=== PATIENT | male | born 1985 | race Caucasian/White ===

== ENCOUNTER 2020-02-27 15:28 | Outpatient (CLI) | payer OTHER ==
--- NOTE | 2020-02-27 23:02 | Ultrasound Report ---
Reason: UMBILICAL HERNIA Procedure Date: 02/27/2020 Accession Number: [id number] / [id number] Procedure: US - Abdomen Limited CPT Code: Final Report FULL RESULT: EXAM: ABDOMEN ULTRASOUND LIMITED EXAM DATE: 02/27/2020 04:33 PM. CLINICAL HISTORY: UMBILICAL HERNIA. COMPARISON: None. TECHNIQUE: The midline anterior abdominal wall is evaluated using the 5 MHz curvilinear and 10 MHz linear array transducers. FINDINGS: Superior to the umbilicus is a midline abdominal wall epigastric hernia partially reducible containing properitoneal fat. Hernia neck 9 mm. Largest hernia sac 4.4 x 2.7 cm. IMPRESSION: Superior to the umbilicus is a partially reducible midline epigastric hernia containing properitoneal fat with 9 mm hernia neck. RADIA
== END 2020-02-27 15:29 | disposition home or self-care (01) ==
LOC: DI 15:28
PROVIDERS: ATTEND Nurse Practitioner Family
DX: K43.9 Ventral hernia without obstruction or gangrene (principal)
CPT/HCPCS: 76705

== ENCOUNTER 2020-03-14 17:25 | Emergency (ER) | payer OTHER ==
[2020-03-14] MEDS ORDERED: ceFAZolin 2 GM in SODIUM CHLORIDE 0.9% 100ML 100 ML IV STA (17:55)
[2020-03-14] MEDS ORDERED: TETANUS/DIPHTHERIA/PERTUSSIS 0.5 ML SYRINGE IM ONE (17:55)
[2020-03-14] MEDS ORDERED: LIDOCAINE 1%-EPI 1:100000 20 ML MDV SUBQ STA (18:01)
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
[2020-03-14 19:19] VITALS: BP 125/89
== END 2020-03-14 19:27 | disposition home or self-care (01) ==
LOC: ED 17:25
DX: S81.011A Laceration without foreign body, right knee, initial encounter (principal); V29.9XXA Motorcycle rider (driver) (passenger) injured in unspecified traffic accident, initial encounter; Y93.55 Activity, bike riding
CPT/HCPCS: 12034; 90471

== ENCOUNTER 2022-05-11 14:20 | Outpatient (CLI) | payer OTHER ==
--- NOTE | 2022-05-11 15:59 | Ultrasound Report ---
PROCEDURE: Abdomen Limited INDICATIONS: REDUCIBLE UMBILLICAL HERNIA TECHNIQUE: Real-time scanning was performed of the abdominal and retroperitoneal organs, with image documentatio n. COMPARISON: None. FINDINGS: There is a fat-containing hernia at the level supraumbilical region. It is partially reducible. Herni a measures approximately 3.9 x 2.3 x 3.7 cm with defect measuring 1.6 cm. IMPRESSION: Partially reducible fat-containing supraumbilical hernia. Reviewed by: Sandra Segovia MD on 05/11/2022 3:58 PM PDT Approved by: Sandra Segovia MD on 05/11/2022 3:58 PM PDT Station ID: [id number]
== END 2022-05-11 14:21 | disposition home or self-care (01) ==
LOC: DI 14:20
PROVIDERS: ATTEND Nurse Practitioner Family
DX: K42.9 Umbilical hernia without obstruction or gangrene (principal)

== ENCOUNTER 2023-06-09 12:27 | Day surgery (SDC) | payer OTHER ==
[~2023-06-09 12:27] MED LIST: ceFAZolin 2 GM VIAL ONE
[2023-06-09] MEDS ORDERED: MIDAZOLAM 2 MG/2 ML VIAL ONE (13:13)
[2023-06-09] MEDS ORDERED: fentaNYL 100 MCG/2 ML VIAL ONE ×2 (13:13→15:30)
[2023-06-09] MEDS ORDERED: PROPOFOL 200 MG/20 ML VIAL IVP ONE ×2 (13:13→14:57)
[2023-06-09] MEDS: LACTATED RINGERS 1,000 ML IV ONE (13:31)
--- NOTE | 2023-06-09 13:44 | ANESTHESIA ---
Pre-Anesthesia VS, & Labs - Diagnosis right inguinal hernia - Procedure right hernia repair, open Vital Signs: Temp Pulse Resp BP Pulse Ox O2 Flow Rate 36.3 C L 58 L 12 133/93 H 100 06/09/23 12:53 06/09/23 12:53 06/09/23 12:53 06/09/23 12:53 06/09/23 12:53 Height: 6 ft 2 in Weight (kg): 77 kg Body Mass Index: 21.8 BMI Classification: Normal - NPO >8 hours Home Medications and Allergies Home Medications: Ambulatory Orders No Known Home Medications 05/26/23 No Known Home Medications 05/26/23 Allergies/Adverse Reactions: Allergies Allergy/AdvReac Type Severity Reaction Status Date / Time No Known Drug Allergies Allergy Verified 03/14/20 17:37 Anes History & Medical History - Anesthetic History Anesthesia Complications: reports: No previous complications - Medical History Cardiovascular: reports: None Pulmonary: reports: None Gastrointestinal: reports: None Urinary: reports: None Musculoskeletal: reports: None Endocrine/Autoimmune: reports: None Skin: reports: None Smoking Status: Never smoker Psychosocial: reports: Alcohol (2 per day) History of Cancer?: No Exam General: Alert, Oriented x3, Cooperative Dental: WNL Mouth Opening: Greater than 4 Fingerbreadths Neck Mobility: Normal Mallampati classification: I Thyromental Distance: greater than 6 cm Respiratory: Lungs clear Cardiovascular: Regular rate Plan Anesthesia Type: General Consent for Procedure(s) Verified and Reviewed: Yes Code Status: Attempt Resuscitation ASA classification: 1-Healthy patient Is this case an emergency?: No
[2023-06-09] MEDS ORDERED: BUPIVACAINE 0.25% PF 30 ML VIAL ONE ×2 (13:45→14:57)
[2023-06-09] MEDS ORDERED: LIDOCAINE-MPF 1% 30 ML VIAL ONE (13:46)
[2023-06-09] MEDS ORDERED: HYDROmorphone 0.5 MG/0.5 ML SYRINGE IVP PRN ×2 (13:48→16:24)
[2023-06-09] MEDS ORDERED: ONDANSETRON 4 MG/2 ML VIAL IVP PRN ×2 (13:48→16:24)
[2023-06-09] MEDS ORDERED: NALOXONE 0.4 MG/ML VIAL IVP PRN (13:48)
[2023-06-09] MEDS ORDERED: MORPHINE 2 MG/ML CARPUJECT IVP PRN (13:48)
[2023-06-09] MEDS ORDERED: ATROPINE ABBOJECT 1 MG/10 ML SYRINGE IVP PRN (13:48)
[2023-06-09] MEDS ORDERED: METOCLOPRAMIDE 10 MG/2 ML VIAL IVP PRN (13:48)
[2023-06-09] MEDS ORDERED: fentaNYL 100 MCG/2 ML VIAL IVP PRN (13:48)
[2023-06-09] MEDS ORDERED: ePHEDrine 50 MG/ML VIAL IVP PRN (13:48)
[2023-06-09] MEDS ORDERED: LACTATED RINGERS 1,000 ML IV SCH (14:00)
--- NOTE | 2023-06-09 14:27 | HISTORY & PHYSICAL EXAMINATION ---
Chief Complaint - Chief Complaint Chief Complaint: here for right inguinal hernia repair History of Present Illness - History Obtained From Records Reviewed: yes History obtained from: pt Exam Limitations: none - History of Present Illness HPI Comment/Other: painful hernia. getting worse, right groin History - Past Medical History Cardiovascular: reports: None Respiratory: reports: None Endocrine/Autoimmune: reports: None GI: reports: None : reports: None HEENT: reports: None Psych: reports: None Musculoskeletal: reports: None Derm: reports: None MRSA Hx?: No Meds/Allgy - Home Medications Home Medications: Ambulatory Orders Medication Instructions Recorded Confirmed HYDROcod/ACETAM 5/325 [Orrick 5/325] 1 each PO Q6H PRN #30 tablet 06/09/23 - Allergies Allergies/Adverse Reactions: Allergies Allergy/AdvReac Type Severity Reaction Status Date / Time No Known Drug Allergies Allergy Verified 03/14/20 17:37 Review of Systems - Other Findings Other Findings: 10 pt ros as above otherwise unremarkable Exam - Vital Signs Vital Signs: Vital Signs x48h Temp Pulse Resp BP Pulse Ox 06/09/23 12:53 36.3 C L 58 L 12 133/93 H 100 - Physical Exam General Appearance: positive: No acute distress, Alert Eyes Bilateral: positive: PERRL, EOMI ENT: positive: No signs of dehydration Neck: positive: No JVD, Trachea midline Respiratory: positive: Breath sounds nml Cardiovascular: positive: Regular rate & rhythm Abdomen: positive: Other (right inguinal hernia present) Neurologic/Psychiatric: positive: Oriented x3 Conclusion/Plan - Problem List (1) Inguinal hernia of right side without obstruction or gangrene Conclusion/Plan: plan open repair with mesh. parq held and consent obtained
[2023-06-09] MEDS ORDERED: ONDANSETRON 4 MG/2 ML VIAL ONE (14:57)
[2023-06-09] MEDS ORDERED: DEXAMETHASONE 4 MG/ML VIAL ONE (14:57)
[2023-06-09] MEDS: BUPIVACAINE 0.25% PF 30 ML VIAL SUBQ ONE (15:07)
[2023-06-09] MEDS: LIDOCAINE-MPF 1% 30 ML VIAL SUBQ ONE (15:08)
[2023-06-09] MEDS ORDERED: ACETAMINOPHEN 1,000 MG/100 ML 1,000 MG/100 ML BAG IV ONE (15:56)
[2023-06-09] MEDS: LACTATED RINGERS 600 ML IV ONE (16:20)
[2023-06-09] MEDS ORDERED: HYDROcod/ACETAM 5/325 MG TABLET PO PRN (16:24)
--- NOTE | 2023-06-09 16:30 | OPERATIVE REPORT ---
Operative Report - General Procedure Date: 06/09/23 Planned Procedure: open right inguinal hernia Pre-Op Diagnosis: right inguinal hernia Procedure Performed: open right inguinal hernia repair Post Op Diagnosis: indirect and direct right inguinal hernia - Procedure Note Primary Surgeon: savannah arellano Anesthesia Technique: General LMA, Local Pathology: not sent Estimated Blood Loss (mL): 2 Drain/Tube Type: Other (none) Indications: painful hernia Findings: large indirect Complications: none - Other Other Information/Narrative: Patient was properly identified brought to the operating room and placed in supine position. Sequential compression devices were placed. General endotracheal anesthesia was induced. He was prepped and draped in a sterile fashion and given preoperative antibiotics. Local anesthetic was given throughout the procedure. A 5 cm incision was made in the direction of Chhaya's lines just cephalad of the pubic tubercle. Dissection proceeded with cutting current cautery. The superficial epigastric vein was identified clamped divided and tied with 3-0 Vicryl. Dissection proceeded down to the aponeurosis. The aponeurosis was opened in the direction of its fibers and extended to the external ring. Cord structures were mobilized and brought up. The nerves were carefully protected and preserved. Cord structures were mobilized and brought up. An indirect inguinal hernia was present. The hernia sac was mobilized off the cord structures and suture ligated with 2 O silk and further reduced. Preperitoneal fat was removed. The base was tied with 2 O vicryl. Polypropylene mesh was cut to size and with tails. The mesh was secured with multiple interrupted 0 Ethibond sutures. Sutures were placed along the pubic tubercle, Christian's ligament area and along the shelving border of Poupart's ligament. Sutures were placed medially along the abdominal wall musculature and internal oblique. The medial tail of the mesh was secured to the shelving border of Poupart's ligament with 3 interrupted 0 ethibond sutures recreating the internal ring of appropriate size. A Aponeurosis was closed with a running 2-0 Vicryl suture. The aponeurosis was closed with interrupted 3-0 Vicryl suture. Buried interrupted subdermal 3-0 Vicryl sutures were then placed. And was closed with a running 4-0 Monocryl subcuticular suture. Dressing was applied. Patient was awakened and brought to recovery in good condition.
--- NOTE | 2023-06-09 16:41 | ANESTHESIA POST OP EVALUATION ---
Anesthesia Post Eval - Post Anesthesia Eval Vitals: Last Vital Signs Temp 37.5 C 06/09/23 16:40 Pulse 57 L 06/09/23 16:40 Resp 11 L 06/09/23 16:40 BP 135/90 H 06/09/23 16:40 Pulse Ox 96 06/09/23 16:40 O2 Flow Rate CV Function Including HR & BP: Stable Pain Control: Satisfactory Nausea & Vomiting: Negative Mental Status: Baseline Respiratory Status: Airway Patent Hydration Status: Satisfactory Anesthesia Complications: None
[2023-06-09] MEDS ORDERED: HYDROcod/ACETAM 5/325 MG TABLET ONE (16:56)
[2023-06-09 16:58] VITALS: BP 141/96
== END 2023-06-09 12:28 | disposition home or self-care (01) ==
LOC: SDS 12:27
PROVIDERS: ATTEND Surgery
DX: K40.90 Unilateral inguinal hernia, without obstruction or gangrene, not specified as recurrent (principal)
CPT/HCPCS: 55540; A9270; C1781; J0131; J7120